=== PATIENT | male | born 1980 | race Caucasian/White ===

== ENCOUNTER 2020-09-26 09:28 | Emergency (ER) | payer OTHER ==
[~2020-09-26] VITALS: Ht 195.6 cm; Wt 108.9 kg
[2020-09-26] MEDS ORDERED: IBUPROFEN (09:53)
[2020-09-27] MEDS ORDERED: IBU600 MG (16:32)
== END 2020-09-26 15:37 | disposition home or self-care (01) ==
LOC: ER 09:28
DX: A90 Dengue fever [classical dengue] (principal); Z03.818 Encounter for observation for suspected exposure to other biological agents ruled out; R06.02 Shortness of breath

== ENCOUNTER 2020-09-27 16:11 | Inpatient (IN) | payer OTHER ==
[~2020-09-27] VITALS: Ht 195.6 cm; Wt 108.9 kg
[~2020-09-27 16:11] MED LIST: IBUPROFEN
[2020-09-27] MEDS ORDERED: IBU600 MG (16:32)
--- NOTE | 2020-09-27 16:32 | NUR ---
SE RECIBE PTE ALERTA Y ORIENTADO X3,EL CUAL REFIERE TOD ESTADO EN LA VEL DE ER GRACE ,LE MEDICO LE [facility]UTH ORDEN PARA HACERSE ANALISIS SALIO CON LAS PLAQUETAS BAJAS,REFIERE TENER DOLOR EN EL CUERPO.
--- NOTE | 2020-09-27 17:24 | NUR ---
EVALUA A PTE. SE EDUCA A PTE SOBRE [place] MEDICO. PTE REFIERE COMPRENDER. SE REALIZAN MUESTRAS DE LABORATORIO BAJO MEDIDAS ASEPTICAS. SE ADMINISTRAN MEDICAMENTOS ANA CRISTINA ORDEN MEDICA. PTE MANEJADO POR .
== END 2020-10-01 10:37 | disposition home or self-care (01) | DRG 866 ==
LOC: ER 16:11 → MEDJ 23:10
PROVIDERS: ADMIT Internal Medicine; ATTEND Internal Medicine
DX: A90 Dengue fever [classical dengue] (principal); D69.6 Thrombocytopenia, unspecified; B34.9 Viral infection, unspecified; Z20.822 Contact with and (suspected) exposure to COVID-19